=== PATIENT | male | born 1950 | race Caucasian/White ===

== ENCOUNTER 2020-02-15 06:51 | Outpatient (NON) | payer OTHER, SELFPAY ==
[2020-02-16 00:30] LABS: SARS-CoV-2 RNA PCR Positive
== END 2020-02-15 06:52 ==
LOC: ANHCOVIDDT 06:59
PROVIDERS: PCP Internal Medicine; Visit Provider Internal Medicine
DX: U07.1 COVID-19 (principal)
CPT/HCPCS: 87635; C9803; U0003